=== PATIENT | female | born 1965 | race Asian ===

== ENCOUNTER 2017-05-12 04:06 | Inpatient (IN) | payer SELFPAY ==
[~2017-05-12] VITALS: Ht 165.1 cm; Wt 59.0 kg
[2017-05-12] VITALS (10 sets, daily range): BP systolic 147–217; BP diastolic 95–119
[2017-05-12] MEDS ORDERED: levETIRAcetam 500 MG in D5W 110 ML IV ONE (04:15)
[2017-05-12] MEDS ORDERED: LORazepam Inj 2mg/ml 1ml IV ONE (04:15)
[2017-05-12] MEDS ORDERED: levETIRAcetam 500mg vial IV ONE (04:17)
[2017-05-12 04:30] LABS: BASOPHILS % (AUTO) 1.5 % (0.0-2.0); EOSINOPHILS % (AUTO) 1.9 % (0.0-3.0); LYMPHOCYTES % (AUTO) 31.2 % (20.0-45.0); MEAN CORPUSCULAR HEMOGLOBIN 29.5 PG (27.0-31.0); MEAN CORPUSCULAR HGB CONC 32.7 G/DL (32.0-36.0); MEAN CORPUSCULAR VOLUME 90 FL (80-99); MEAN PLATELET VOLUME 5.9 FL (6.5-10.1); MONOCYTES % (AUTO) 4.8 % (1.0-10.0); NEUTROPHILS % (AUTO) 60.7 % (45.0-75.0); PLATELET COUNT 553 K/UL (150-450); RED BLOOD COUNT 5.33 M/UL (4.20-5.40); RED CELL DISTRIBUTION WIDTH 11.6 % (11.6-14.8)
[2017-05-12 04:41] LABS: ALANINE AMINOTRANSFERASE 23 U/L (3-33); ALBUMIN/GLOBULIN RATIO 1.3 (1.0-2.7); ANION GAP 25 (5-15); ASPARTATE AMINO TRANSFERASE 28 U/L (5-40); CALCIUM 9.8 mg/dL (8.6-10.2); CARBON DIOXIDE 20 mEQ/L (20-30); CHLORIDE 90 mEQ/L (98-107); CREATININE 0.9 mg/dL (0.5-0.9); GLOMERULAR FILTRATION RATE > 60 mL/min (>60); HEMOLYSIS 4; POTASSIUM 4.1 mEQ/L (3.4-4.9); SODIUM 135 mEQ/L (135-145); TOTAL PROTEIN 7.9 g/dL (6.6-8.7)
[2017-05-12 04:42] LABS: TROPONIN I < 0.30 ng/mL (<=0.30)
--- NOTE | 2017-05-12 05:31 | Emergency Room Report ---
History of Present Illness General Chief Complaint: Altered Level of Consciousness Source: Family Member, EMS Present Illness HPI EMS was called for decreased mentation. During transport in the patient had gradual improvement. Allegedly just before this happened she had episodes of shaking where she was not responding at that time the shakiness violence. She' s never had an episode like this before. She does have a history of diabetes and is taking homeopathic medication from [place] and some other pills that we have been unable to identify. The patient was complaining of a headache earlier during the day. She denies any fevers, chills, nausea vomiting vomiting diarrhea palpitations chest pain productive cough rash neck stiffness change in vision. She is traveling from [facility] and was planning on returning home on Saturday. She's getting headaches with one of the pills that she's been taking from [place] doctor. Allergies: Coded Allergies: No Known Allergies (Unverified , 05/12/17) Patient History Past Medical History: see triage record, DM, HTN Social History: Denies: alcohol use, drug use, smoking Social History Narrative from [place] Reviewed Nursing Documentation: PMH: Agreed, PSxH: Agreed Nursing Documentation-PMH Hx Hypertension: Yes Hx Diabetes: Yes Review of Systems All Other Systems: negative except mentioned in HPI Physical Exam Vital Signs Date Time Temp Pulse Resp B/P Pulse Ox O2 Delivery O2 Flow Rate FiO2 05/12/17 04:04 98.4 115 16 217/119 98 Room Air Sp02 EP Interpretation: reviewed, normal General Appearance: well appearing, no apparent distress, other - GCS 14 Head: normocephalic Eyes: bilateral eye PERRL, bilateral eye normal inspection ENT: moist mucus membranes - no lingual macerations Neck: full range of motion, supple, no bony tend Respiratory: chest non-tender, lungs clear, normal breath sounds Cardiovascular #1: regular rate, rhythm Cardiovascular #2: 2+ radial (R) Gastrointestinal: normal inspection, normal bowel sounds, non tender, no mass, non-distended Musculoskeletal: back normal, gait/station normal, normal range of motion Neurologic: alert, oriented x3, general teller III-XII nml as tested, motor strength/tone normal, DTRs symmetric, sensory intact, speech normal Psychiatric: mood/affect normal Skin: normal inspection, warm/dry Medical Decision Making Diagnostic Impression: Primary Impression: New onset seizure Additional Impression: Hyperglycemia ER Course Patient is brought in after a shaking episode that led to her unresponsiveness which gradually cleared when she came in. No prior history of seizure. The patient needs to be evaluated for possible arrhythmia or acute myocardial infarction, new onset seizure, brain bleed amongst others. In addition she has a history of diabetes and blood sugar was elevated in the field and this needs to be evaluated also. She will have EKG, CT of the head, chest x-ray and electrolytes CBC and sedimentation rate. Will be given Ativan and Keppra to prevent further seizure activity. Labs significant for hyperglycemia and minimal leukocytosis. CT unremarkable. EKG no sign changes. CXR normal. Patient continues with GCS 15 (though not know of event except what told). Glucose treated with insulin with improvement. Patient needs observation to exclude arrhythmia or cardiac cause with continued treatment of hyperglycemia. Admit med Dr. Mcclure.. Labs Test 05/12/17 04:20 05/12/17 05:45 White Blood Count 11.0 K/UL (4.8-10.8) Red Blood Count 5.33 M/UL (4.20-5.40) Hemoglobin 15.7 G/DL (12.0-16.0) Hematocrit 48.1 % (37.0-47.0) Mean Corpuscular Volume 90 FL (80-99) Mean Corpuscular Hemoglobin 29.5 PG (27.0-31.0) Mean Corpuscular Hemoglobin Concent 32.7 G/DL (32.0-36.0) Red Cell Distribution Width 11.6 % (11.6-14.8) Platelet Count 553 K/UL (150-450) Mean Platelet Volume 5.9 FL (6.5-10.1) Neutrophils (%) (Auto) 60.7 % (45.0-75.0) Lymphocytes (%) (Auto) 31.2 % (20.0-45.0) Monocytes (%) (Auto) 4.8 % (1.0-10.0) Eosinophils (%) (Auto) 1.9 % (0.0-3.0) Basophils (%) (Auto) 1.5 % (0.0-2.0) Sodium Level 135 mEQ/L (135-145) Potassium Level 4.1 mEQ/L (3.4-4.9) Chloride Level 90 mEQ/L (98-107) Carbon Dioxide Level 20 mEQ/L (20-30) Anion Gap 25 (5-15) Blood Urea Nitrogen 17 mg/dL (7-23) Creatinine 0.9 mg/dL (0.5-0.9) Estimat Glomerular Filtration Rate > 60 mL/min (>60) Glucose Level 396 mg/dL (74-106) Calcium Level 9.8 mg/dL (8.6-10.2) Total Bilirubin 0.2 mg/dL (0.0-1.2) Aspartate Amino Transf (AST/SGOT) 28 U/L (5-40) Alanine Aminotransferase (ALT/SGPT) 23 U/L (3-33) Alkaline Phosphatase 114 U/L (35-104) Total Creatine Kinase 46 U/L (26-140) Troponin I < 0.30 ng/mL (<=0.30) Total Protein 7.9 g/dL (6.6-8.7) Albumin 4.5 g/dL (3.5-5.2) Globulin 3.4 g/dL Albumin/Globulin Ratio 1.3 (1.0-2.7) Urine Color Pale yellow Urine Appearance Clear Urine pH 5 (4.5-8.0) Urine Specific [place] 1.015 (1.005-1.035) Urine Protein 2+ (NEGATIVE) Urine Glucose (UA) 4+ (NEGATIVE) Urine Ketones 1+ (NEGATIVE) Urine Occult Blood 1+ (NEGATIVE) Urine Nitrite Negative (NEGATIVE) Urine Bilirubin Negative (NEGATIVE) Urine Urobilinogen Normal MG/DL (0.0-1.0) Urine Leukocyte Esterase Negative (NEGATIVE) Urine RBC 0-2 /HPF (0 - 2) Urine WBC 2-4 /HPF (0 - 2) Urine Squamous Epithelial Cells Few /LPF (NONE/OCC) Urine Bacteria None /HPF (NONE) EKG Diagnostic Results Rate: tachycardiac Rhythm: NSR ST Segments: no acute changes Rhythm Strip Diag. Results EP Interpretation: yes Rhythm: no PVC's, no ectopy, other - ST Chest X-Ray Diagnostic Results Chest X-Ray Ordered: Yes # of Views/Limited/Complete: 1 View EP Interpretation: Yes Interpretation: no consolidation, no effusion, no pneumothorax, no acute cardiopulmonary disease Indication: Other Impression: No acute disease Interpreting ER Provider: Wayne CT/MRI/US Diagnostic Results CT/MRI/US Diagnostic Results : Imaging Test Ordered: head Impression nl Status: improved Disposition: ADMITTED INPATIENT Condition: Serious Referrals: NOT CHOSEN IPA/,REFERRING (PCP) Sincere Black M.D. May 12, 2017 05:31
[2017-05-12 05:58] LABS: APPEARANCE,URINE CLEAR; KETONES,URINE 1+ (NEGATIVE); LEUKOCYTE ESTERASE ,URINE NEGATIVE (NEGATIVE); NITRITE,URINE NEGATIVE (NEGATIVE); PH,URINE 5 (4.5-8.0); PROTEIN,URINE 2+ (NEGATIVE); UROBILINOGEN,URINE NORMAL MG/DL (0.0-1.0)
[2017-05-12 06:31] LABS: RBC,URINE 0-2 /HPF (0 - 2); SQUAMOUS EPITHELIAL CELL,UR FEW /LPF (NONE/OCC)
[2017-05-12] MEDS ORDERED: NKM (07:39)
--- NOTE | 2017-05-12 08:27 | Diagnostic Imaging Report ---
Indications: Seizure Technique: Continuous helical CT imaging of the brain was performed with automatic exposure control on a Siemens sensation [address] scanner. Axial and coronal images were reconstructed at 5 mm slice thickness and interval. CTDI volume(s): 70 mGy Total DLP: 1407 mGy-cm Findings: Comparison: None. Minimal low attenuation bifrontal periventricular white matter.. No evidence of mass or hemorrhage, other attenuation abnormality, mass effect, midline shift, hydrocephalus or increased intracranial pressure. Bone window images are unremarkable. Visualized paranasal sinuses and mastoid air cells are clear. IMPRESSION: No evidence of acute intracranial pathology. Examination suboptimal for evaluation of first-time seizure. MRI of the brain without and with gadolinium, seizure protocol, recommended for more complete evaluation, as clinically indicated. Minimal chronic microvascular ischemic change bifrontal periventricular white matter. This correlates with [facility] preliminary report. The CT scanner at [facility] is accredited by the [employer] [employer] and the scans are performed using protocols designed to limit radiation exposure to as low as reasonably achievable to attain images of sufficient resolution adequate for diagnostic evaluation.
[2017-05-12] MEDS ORDERED: LORazepam Inj 2mg/ml 1ml IVP PRN (08:30)
[2017-05-12] MEDS ORDERED: Zolpidem 5mg tab ORAL PRN (08:30)
[2017-05-12] MEDS ORDERED: metFORMIN 500mg tab ORAL SCH (09:00)
[2017-05-12] MEDS: Heparin 5000 units/ml inj SUBQ SCH ×2 (09:59→21:06)
[2017-05-12] MEDS: NovoLOG Insulin Flexpen SUBQ SCH ×3 (12:19→21:05)
--- NOTE | 2017-05-12 15:04 | History & Physical ---
History and Physical History & Physicial Present Illness HPI 52 year presents with decreased mentation. Patient with possibly a witnessed seizure. She does have a history of diabetes and is taking homeopathic medication from [place] She denies any fevers, chills, nausea vomiting diarrhea palpitations chest pain neck stiffness change in vision. She is traveling from [facility] and was planning on returning home on Saturday. Allergies: No Known Allergies (Unverified , 05/12/17) Past Medical History: DM, HTN Social History Narrative: from [place] Meds: noted Physical exam WDWN NAD clear breath sounds bilaterally without rhonchi or wheeze [id number] without MRG NABS nontender no HSM no CCE nonfocal Labs Test 05/12/17 04:20 05/12/17 05:45 White Blood Count 11.0 K/UL (4.8-10.8) Red Blood Count 5.33 M/UL (4.20-5.40) Hemoglobin 15.7 G/DL (12.0-16.0) Hematocrit 48.1 % (37.0-47.0) Mean Corpuscular Volume 90 FL (80-99) Mean Corpuscular Hemoglobin 29.5 PG (27.0-31.0) Mean Corpuscular Hemoglobin Concent 32.7 G/DL (32.0-36.0) Red Cell Distribution Width 11.6 % (11.6-14.8) Platelet Count 553 K/UL (150-450) Mean Platelet Volume 5.9 FL (6.5-10.1) Neutrophils (%) (Auto) 60.7 % (45.0-75.0) Lymphocytes (%) (Auto) 31.2 % (20.0-45.0) Monocytes (%) (Auto) 4.8 % (1.0-10.0) Eosinophils (%) (Auto) 1.9 % (0.0-3.0) Basophils (%) (Auto) 1.5 % (0.0-2.0) Sodium Level 135 mEQ/L (135-145) Potassium Level 4.1 mEQ/L (3.4-4.9) Chloride Level 90 mEQ/L (98-107) Carbon Dioxide Level 20 mEQ/L (20-30) Anion Gap 25 (5-15) Blood Urea Nitrogen 17 mg/dL (7-23) Creatinine 0.9 mg/dL (0.5-0.9) Estimat Glomerular Filtration Rate > 60 mL/min (>60) Glucose Level 396 mg/dL (74-106) Calcium Level 9.8 mg/dL (8.6-10.2) Total Bilirubin 0.2 mg/dL (0.0-1.2) Aspartate Amino Transf (AST/SGOT) 28 U/L (5-40) Alanine Aminotransferase (ALT/SGPT) 23 U/L (3-33) Alkaline Phosphatase 114 U/L (35-104) Total Creatine Kinase 46 U/L (26-140) Troponin I < 0.30 ng/mL (<=0.30) Total Protein 7.9 g/dL (6.6-8.7) Albumin 4.5 g/dL (3.5-5.2) Globulin 3.4 g/dL Albumin/Globulin Ratio 1.3 (1.0-2.7) Urine Color Pale yellow Urine Appearance Clear Urine pH 5 (4.5-8.0) Urine Specific [place] 1.015 (1.005-1.035) Urine Protein 2+ (NEGATIVE) Urine Glucose (UA) 4+ (NEGATIVE) Urine Ketones 1+ (NEGATIVE) Urine Occult Blood 1+ (NEGATIVE) Urine Nitrite Negative (NEGATIVE) Urine Bilirubin Negative (NEGATIVE) Urine Urobilinogen Normal MG/DL (0.0-1.0) Urine Leukocyte Esterase Negative (NEGATIVE) Urine RBC 0-2 /HPF (0 - 2) Urine WBC 2-4 /HPF (0 - 2) Urine Squamous Epithelial Cells Few /LPF (NONE/OCC) Urine Bacteria None /HPF (NONE) IMPRESSION possible seizure ALOC of unclear significance hypertension diabetes PLAN bp therapy bs therapy diabetic diet EEG MRI neuro clearance JONO BLACKMAN May 12, 2017 15:04
[2017-05-12] MEDS: metFORMIN 500mg tab ORAL SCH (17:35)
[2017-05-13] VITALS: BP 162/115
[2017-05-13 04:00] VITALS: BP 179/105
[2017-05-13] MEDS: NovoLOG Insulin Flexpen SUBQ SCH (06:15)
[2017-05-13 08:09] VITALS: BP 133/92
--- NOTE | 2017-05-13 08:34 | General Progress Note ---
Assessment/Plan Assessment/Plan IMPRESSION possible seizure ALOC of unclear significance hypertension diabetes PLAN discussed with family with nursing at bedside refusing MRI and EEG refusing care want to sign out AMA explained to them that patient is not safe and has hypertension and diabetes still, they want to sign out AMA patient is fully alert and oriented and all are able to make decisions AMA form given by nursing Subjective Allergies: Coded Allergies: No Known Allergies (Unverified , 05/12/17) Objective Last 24 Hour Vital Signs Date Time Temp Pulse Resp B/P Pulse Ox O2 Delivery O2 Flow Rate FiO2 05/13/17 08:09 97.0 72 18 133/92 97 Room Air 05/13/17 05:01 179/105 05/13/17 04:00 97.0 68 19 179/105 98 Room Air 05/13/17 04:00 69 05/13/17 00:24 162/115 05/13/17 00:00 97.3 82 21 162/115 98 Room Air 05/13/17 00:00 71 05/12/17 21:00 81 159/98 05/12/17 20:00 73 05/12/17 20:00 97.9 81 19 159/98 97 Room Air 05/12/17 17:35 156/114 05/12/17 16:50 98.2 79 20 156/114 97 Room Air 05/12/17 15:46 80 05/12/17 13:30 85 148/103 05/12/17 12:59 101 158/105 05/12/17 12:30 97.3 101 16 158/105 98 Room Air 05/12/17 12:03 94 05/12/17 10:15 153/99 05/12/17 10:09 153/99 Intake and Output 05/12/17 05/13/17 19:00 07:00 Intake Total 1000 ml 1115 ml Balance 1000 ml 1115 ml Intake Oral 100 ml 50 ml IV Total 900 ml 1065 ml # Voids 3 2 Height (Feet): 5 Height (Inches): 5.00 Weight (Pounds): 130 JONO BLACKMAN May 13, 2017 08:34
[2017-05-13] MEDS: Heparin 5000 units/ml inj SUBQ SCH (09:00)
[2017-05-13] MEDS ORDERED: Benazepril 10mg tab ORAL SCH (09:00)
[2017-05-13] MEDS: metFORMIN 500mg tab ORAL SCH (09:25)
--- NOTE | 2017-05-13 10:53 | Neurology Progress Note ---
Objective Physical Exam Last Vital Signs Date Time Temp Pulse Resp B/P Pulse Ox O2 Delivery O2 Flow Rate FiO2 05/13/17 09:26 72 133/92 05/13/17 08:09 97.0 18 97 Room Air Impression/Recommendations Recommendations #[id number] QUIANA ROWLEY May 13, 2017 10:53
[2017-05-13 12:00] VITALS: BP 182/112
--- NOTE | 2017-05-13 20:07 | Cardiology Report ---
APPROVED REPORT EKG Measurement Heart [id number] KS [id number] [id number] Sinus tachycardia Biatrial enlargement Pulmonary disease pattern Left anterior fascicular block Nonspecific ST abnormality Abnormal ECG
--- NOTE | 2017-05-13 21:01 | Consultation ---
DATE OF CONSULTATION: 05/13/2017 NEUROLOGICAL CONSULTATION: REQUESTING PHYSICIAN: Arturo Mcclure M.D. HISTORY OF PRESENT ILLNESS: This is a 52-year-old Faroese speaking female seen in neurological consultation to evaluate new onset of seizure disorder. According to the family members who were present during this examination known that the last couple of days, the patient was visiting to [facility] went back home on Saturday feeling fairly well as soon after dinner she went to bed without any complaints. Around 3 a.m, her daughter who was with her in the bed felt that "like something is shaking with eyes closed, for 2 to 3 minutes with no response, foaming from her mouth, but no urine or bowel incontinence and no tongue biting. Shaking stopped around in 2 to 3 minutes, she remained nonresponsive, later she was able to open eyes, but still confused and not verbal. Paramedics were called to the scene. At that time, the patient was more awake and was able to walk assisted to ambulance. She was brought to the emergency room she had a headache earlier that day. She also explained that she is a traveller from [facility] and planning to return home in few days . She also reported to have periodic headaches in the past, for which she was taking some medications given by her Faroese doctor. On admission, her blood pressure was 217/119, temperature 98.4 degrees, and heart rate of 116. Stat CT of the brain was obtained, this revealed no acute abnormalities, there were minimal low attenuation of bifrontal periventricular white matter. Lab work included CBC study with WBC 11.0. Chemistry panel, anion gap of 25, blood sugar 396, 114, otherwise normal study. Since admission till present, her condition remained stable. No paroxysmal events. Currently, the patient is complaining of slight dizziness and drowsiness. The patient initially was given Ativan to stop seizures and placed on medications for high blood pressure and diabetes. She is on insulin, benazepril, and normal saline. She started on Keppra 500 mg twice a day, lorazepam as needed, metformin, Mylanta, and pantoprazole. ALLERGIES: None reported. SOCIAL HISTORY: No alcohol. No drug abuse. FAMILY HISTORY: Noncontributory. No members with seizure disorder. PHYSICAL EXAMINATION: GENERAL: This is a well-developed, well-nourished, pleasant lady, not in acute distress. VITAL SIGNS: Now stable. Blood pressure 133/92 and temperature 97.0 degrees. HEENT: Head, normocephalic. No evidence of trauma. Eyes, ears, and throat are clear. NECK: Supple. No meningeal signs. MUSCULOSKELETAL: Unremarkable. There is no deformities. PERIPHERAL PULSES: A 1+ symmetric. MENTAL STATUS: She is alert and oriented x3 with no evidence of aphasia or apraxia. She speaks Faroese only and helped interpretation by her family. CRANIAL NERVES II: Pupils both responding to light and accommodation. Extraocular movement intact. No nystagmus. CRANIAL NERVES V: Normal corneal responses. CRANIAL NERVES VII: No facial asymmetry. CRANIAL NERVES VIII: Normal hearing. CRANIAL NERVES IX THROUGH XII: With normal limits. MOTOR EXAMINATION: Normal muscle tone. Strength 5/5 in all extremities. No involuntary movement. Deep reflexes 1+ symmetric with downgoing toes on both sides. SENSORY EXAM: Normal to pinprick light touch. Gait is slightly wobbly. IMPRESSION: 1. generalized clonic-tonic seizure episode. 2. Hypertension, out of control. 3. Diabetes, poorly controlled. RECOMMENDATIONS: 1. The patient recommended to have MRI of the brain without contrast. 2. EEG. 3. Maintain strict blood pressure and blood sugar control. 4. Continue with Keppra 500 mg b.i.d. At this time, the patient and her family decided to sign AMA in order to fly back to [facility] where she would like to see her family physician to continue with the treatment as necessary. Thank you for allowing me to see this interesting patient in neurological consultation. David Watt M.D. DR: Jose Guadalupe JOB#: [id number] CC:
--- NOTE | 2017-05-14 11:06 | Discharge Summary ---
Discharge Summary Hospital Course Date of Admission May 12, 2017 at 05:40 Date of Discharge May 13, 2017 at 12:00 Admitting Diagnosis new onset seizure/hyperglycemia HPI Bonnie Turk is a 52 year old female who was admitted on May 12, 2017 at 05:40 for New Onset Seizure/Hyperglycemia Hospital Course dc summary #[id number] Discharge Condition Upon Discharge: improving Discharge Disposition Patient signed AMA Discharge Diagnoses: Discharge Instructions Discharge Instructions Special Instructions I have been assigned to complete a D/C Summary on this account. I was not involved in the patient management Anna Clifford NP (Vanchtein) May 14, 2017 11:06
--- NOTE | 2017-05-15 00:45 | Discharge Summary 2 SIG ---
DATE OF ADMISSION: 05/12/2017 DATE OF SIGNING AGAINST MEDICAL ADVISE: 05/13/2017 REASON FOR ADMISSION: 52-year-old French speaking female with a history of diabetes and hypertension, presented to the emergency department with a decreased mentation. According to the family, the patient had episode of shaking and was not responding.The patient never had this episode before. Family called paramedics to bring the patient for evaluation. The patient reported headache earlier that day when the episodes happened. She denied fever, chills, nausea, vomiting, diarrhea, palpitation, chest pain, cough, neck stiffness, or change in vision. She was traveling from [facility] and was planning to return to [place] on coming Saturday. She reported headaches with homeopathic medication from [place] that she was taking for diabetes. Workup in the emergency room revealed blood sugar - 396. The patient had mild leukocytosis - 11. CT of the head revealed no acute intracranial pathology. EKG showed no ischemic changes. Sinus tachycardia with heart rate - 115. Chest x-ray revealed no acute cardiopulmonary pathology. Troponin was negative. Urinalysis was negative. The patient admitted for further management. ADMITTING DIAGNOSES: 1. New onset of seizure. 2. Altered level of consciousness likely secondary to seizure episode. 3. Hypertension. 4. Diabetes. HOSPITAL STAY: The patient admitted. Neurology consult was requested. EEG and MRI of the brain were ordered. The patient started on Keppra. Seizure precaution were maintained. No further episodes of seizure while in the hospital. Blood pressure was managed with regimen of SATISH inhibitor and beta-montez as well as clonidine as needed. Blood pressure was not controlled yet. Blood sugar was managed with sliding scale of insulin. T DVT and GI prophylaxis provided. Neurologist seen the patient and recommended to follow up with the tests ( MRI and EEG) as ordered. Neurologist diagnosed the patient with generalized tonic-clonic seizure. Family decided to sign against medical advice because the patient was returning to [place] next week on Saturday. The family stated the patient prefers to follow up with her primary doctor. The risks and consequences of signing against medical advise were discussed with family, however they insisted on leaving. The patient signed the form and left surrounding by family. Prior to leaving, the patient was reminded that the blood sugar needs to be controlled better with oral medication instead of the homeopathic and blood pressure was not controlled in the hospital as well. FINAL DIAGNOSES: 1. New onset of generalized tonic-clonic seizure episode. 2. Altered level of consciousness due to acute toxic encephalopathy secondary to seizure episode. 3. Hypertensive urgency. 4. Diabetes mellitus, poorly controlled. Arturo Mcclure M.D. I have been assigned to dictate discharge summary on this account and I was not involved in the patient's management. Anna SueGermaine calderon DR: Toya JOB#: [id number] CC: GABY
== END 2017-05-13 12:00 | disposition left against medical advice (07) | DRG 100 ==
LOC: EDBD 04:06 → EMR 04:20 → 2E 05:40 → EDBEDREQ 07:12
DX: G40.409 Other generalized epilepsy and epileptic syndromes, not intractable, without status epilepticus (principal); G92 Toxic encephalopathy; I10 Essential (primary) hypertension; E11.65 Type 2 diabetes mellitus with hyperglycemia
CPT/HCPCS: 36415; 70450; 71010; 80053; 80299; 81003; 82550; 82962; 84484; 85025; 93005; J1815